=== PATIENT | female | born 1965 | race Caucasian/White ===

== ENCOUNTER 2017-04-07 11:18 | Emergency (ER) | payer MEDICAID ==
[~2017-04-07] VITALS: Ht 152.4 cm; Wt 68.5 kg
[2017-04-07 15:00] VITALS: BP 103/66
[2017-04-07] MEDS ORDERED: ACETAMINOPHEN 500MG TABLET PO ONE (15:00)
== END 2017-04-07 17:16 | disposition home or self-care (01) ==
LOC: ER 11:42
DX: S40.012A Contusion of left shoulder, initial encounter (principal); S09.90XA Unspecified injury of head, initial encounter; M25.511 Pain in right shoulder; M54.2 Cervicalgia; R10.2 Pelvic and perineal pain; M25.552 Pain in left hip; Z88.5 Allergy status to narcotic agent; W07.XXXA Fall from chair, initial encounter; Y93.89 Activity, other specified; Y92.89 Other specified places as the place of occurrence of the external cause; Y99.8 Other external cause status
CPT/HCPCS: 70450; 73522; 81025; 99284; Z7610